=== PATIENT | female | born 2005 | race Asian ===

== ENCOUNTER 2024-04-20 10:24 | Outpatient (CLI) | payer BC, SELFPAY ==
--- NOTE | 2024-04-20 10:33 | US_ITS ---
FINAL REPORT CLINICAL HISTORY: POSTPRANDIAL PAIN / NAUSEA COMPARISON: None FINDINGS: Sonographic images of the right upper quadrant were obtained. The pancreas is unremarkable in appearance.The liver has an unremarkable appearance.The gallbladder appears normal without evidence of gallstones.There is no evidence of biliary ductal dilatation.The common duct measures 3 mm. Limited images of the right kidney are unremarkable. IMPRESSION: Unremarkable right upper quadrant ultrasound. Authenticated and ERN
[2024-04-20 11:21] LABS: Basophils # 0.1 K/mm3 (0-0.2); Basophils % 0.9 % (0.1-2.0); Eosinophils # 0.1 K/mm3 (0.0-0.4); Eosinophils % 1.2 % (0.1-12.0); Hematocrit 42.7 % (37.0-47.0); Hemoglobin 14.5 g/dL (12.2-16.2); Lymphocytes # 1.6 K/mm3 (0.7-4.5); Lymphocytes % 26.6 % (10-50); Mean Corpuscular HGB Conc 33.9 g/dL (31.8-35.4); Mean Corpuscular Hemoglobin 30.6 pg (27.0-31.2); Mean Corpuscular Volume 90.1 fl (81-99); Mean Platelet Volume 8.7 fl (7.4-10.4); Monocytes # 0.3 K/mm3 (0.1-1.0); Monocytes % 5.6 % (1.7-9.3); Neutrophils # 3.8 K/mm3 (1.8-7.8); Neutrophils % 65.7 % (37.0-80.0); Platelet Count 190 K/mm3 (142-424); Red Blood Count 4.74 M/mm3 (4.20-5.40); Red Cell Distribution Width 12.5 % (11.5-17.5); White Blood Count 5.8 K/mm3 (4.5-13.0)
[2024-04-20 11:40] LABS: Alanine Aminotransferase 20 U/L (12-78); Albumin Level 4.6 g/dl (3.5-5.0); Alkaline Phosphatase 40 U/L (38-126); Anion Gap 11.2 mEq/L (5-15); Aspartate Amino Transferase 23 U/L (14-36); Bilirubin,Total 0.7 mg/dl (0.2-1.3); Blood Urea Nitrogen 12 mg/dl (7-17); Calcium 9.3 mg/dl (8.4-10.2); Carbon Dioxide 27 mmol/L (22.0-30.0); Chloride 106 mmol/L (98-107); Estimated Glomerular Filt Rate 157 ml/min (>60); GFR (African American) 190 ML/MIN (>60); Globulin 2.3 g/dL (1.3-3.2); Glucose 81 mg/dl (74-100); Potassium 4.2 mmoL/L (3.5-5.1); Sodium 140 mmol/L (136-145); Total Protein,Serum 6.9 g/dl (6.3-8.2)
[2024-04-21 14:49] LABS: Endomysial IgA Antibody Negative (Negative)
[2024-04-21 16:23] LABS: Deamidated Gliadin Abs, IgA 3 units (0-19); Deamidated Gliadin Abs, IgG 3 units (0-19); Tissue Transglutaminase IgA Ab <2 U/mL (0-3); Tissue Transglutaminase IgG Ab 2 U/mL (0-5)
[2024-04-23 09:15] LABS: Reticulin IgA Antibody Negative titer (Neg:<1:2.5)
[2024-04-23 16:14] LABS: Saccharomyces cerevisiae, IgA <20.0 Units (0.0-24.9); Saccharomyces cerevisiae, IgG 32.5 Units (0.0-24.9)
== END 2024-04-20 23:59 | disposition home or self-care (01) ==
PROVIDERS: PCP Nurse Practitioner Family; Visit Provider Nurse Practitioner Family
DX: R11.2 Nausea with vomiting, unspecified (principal); K21.9 Gastro-esophageal reflux disease without esophagitis; R10.30 Lower abdominal pain, unspecified; R19.7 Diarrhea, unspecified
CPT/HCPCS: 36415; 76705; 80053; 83516; 85025; 86255; 86256; 86671

== ENCOUNTER 2024-06-17 08:01 | Day surgery (SDC) | payer BC, SELFPAY ==
--- NOTE | 2024-06-10 10:34 | SUR.PREOP ---
AZAEL W/ CALL BACK # ON 06/10 @ 1701
[2024-06-17 08:14] VITALS: BMI 20.5
[2024-06-17 08:24] VITALS: BP 164/94; PULSE 108; RESP 17; TEMP 37.4; O2SAT 100
[2024-06-17 08:35] LABS: Urine Pregnancy, HCG Qual. Negative (Negative)
--- NOTE | 2024-06-17 08:39 | EXP.HP ---
History of Present Illness *Admission Date: 06/17/24 *Reason for visit:: Lower abdominal cramps/pain-intermittent diarrhea *History of present illness: Ms. Jordan is a 18-year-old female who is here for diagnostic colonoscopy secondary to lower abdominal pain/cramps with intermittent diarrhea. Her IBD serologic panel did show a positive ASCA IgG antibody?positive Crohn's serology. The examination is deemed medically necessary for colonoscopy. The patient has been seen, interviewed and examined prior to the procedure by both myself and the anesthesia provider. [facility] Disclaimer: The information contained in this section may have been updated after the patient was seen, as this information can be updated by other users. Medical History (Updated 06/17/24 @ 08:47 by Roberto Johansen II, MD) Acid reflux Surgical History [place] teeth extracted Family History Other Adopted Social History Smoking Status: Never smoker alcohol intake: never substance use type: denies use current occupational status: student Travel in the last 8 weeks: Inside the [place] Review of Systems Review of Systems Review of systems (narrative): Negative *Cardiovascular Comments: Negative *Gastrointestinal Comments: Negative *Genitourinary Comments: Negative *Musculoskeletal Comments: Negative *Neurologic Comments: Negative Meds Home Medications and Allergies Home Medications ?Medication ?Instructions ?Recorded ?Confirmed ?Type famotidine 20 mg tablet 20 mg PO DAILY PRN reflux 04/12/24 06/17/24 History New Prescriptions to Start Prescriptions: Allergies Allergy/AdvReac Type Severity Reaction Status Date / Time No Known Allergies Allergy Verified 06/17/24 08:23 Exam Data for Last 24 hours Vital signs and Labs for Last 24 Hours: Temp Pulse Resp BP Pulse Ox O2 Del Method 99.3 F 108 H 17 164/94 H 100 Room Air 06/17/24 08:24 06/17/24 08:24 06/17/24 08:24 06/17/24 08:24 06/17/24 08:24 06/17/24 08:24 Laboratory Results - last 24 hr 06/17/24 08:15: Urine HCG, Qual Negative I & O for Last 24 hours: Intake & Output 06/14/24 06/15/24 06/16/24 06/17/24 23:59 23:59 23:59 23:59 Weight 98 lb *Routine HEENT Exam Head: Present normocephalic Eye: Present EOMI and PERRL ENT: Present mucous membranes moist *Routine Neck Exam Neck: Present supple *Routine Respiratory Exam Respiratory: Present CTA bilaterally *Routine Cardiovascular Exam Cardiovascular: Present RRR *Routine Abdominal Exam Abdominal: Present soft and normoactive bowel sounds; Absent tenderness *Routine Rectal Exam Rectal:: deferred *Routine Genitalia Exam Genitalia:: deferred *Routine Extremities Exam Extremities: Absent cyanosis, clubbing or edema *Routine Skin Exam Skin: Present warm; Absent rash *Routine Neurological Exam Neurological: Present alert and oriented X3 Assessment and Plan *Assessment and plan (1) Lower abdominal pain: Status: Acute Category: Medical Code(s): R10.30 - Lower abdominal pain, unspecified (2) Intermittent diarrhea: Status: Acute Category: Medical Code(s): R19.7 - Diarrhea, unspecified (3) Elevated Saccharomyces cerevisiae antibody level: Status: Acute Category: Medical Code(s): R76.8 - Other specified abnormal immunological findings in serum Plan A/P: 1. Lower abdominal pain with intermittent diarrhea and positive ASCA IgG antibody is the preprocedural diagnosis. The patient will be anesthetized/sedated using MAC sedation. The patient has been seen and examined. Cardiac and lung assessment prior to the examination is stable. Proceed with planned diagnostic colonoscopy
--- NOTE | 2024-06-17 08:39 | EXP.ANES.CKL ---
[facility] Disclaimer: The information contained in this section may have been updated after the patient was seen, as this information can be updated by other users. Medical History Acid reflux Surgical History [place] teeth extracted Family History Other Adopted Social History Smoking Status: Never smoker alcohol intake: never substance use type: denies use current occupational status: student Travel in the last 8 weeks: Inside the [place] [facility] Anesthesia Checklist Patient Identification Patient Identification: Arm Band Structural Data Admitted From: Home Planned Operative Procedure/s: Colonoscopy Consent for Planned Operative Procedure(s) Verified: Yes Verified Documents: Surgical Consent and History and Physical NPO Status Verified Time NPO: 00:00 Additional verifications Anesthesia Reactions: No Airway Assessment Mallampati Score:: Class II C-Spine Mobility Assessed: Yes TMJ Mobility Assessed: Yes Dentition: Good Dentition Neurological Assessment Level of Consciousness: Awake, Alert and Appropriate Anesthesia Plan Anesthesia Risk discussed: Yes Anesthesia Plan: Verified ASA Class: I Anesthesia Type: MAC
[2024-06-17 08:42] VITALS: O2SAT 100
--- NOTE | 2024-06-17 08:48 | P.PCN_ITS ---
[facility] Procedure Note Date: 06/17/24 Time: 09:02 Procedure Note:: Colonoscopy Procedure Report: Colonoscopy Endoscopist: Roberto Johansen II, MD Referring physician: Lyndsay JOSEPH Date of Procedure: June 17, 2024 Equipment: Olympus 190 variable stiffness pediatric colonoscope Sedation: MAC sedation Indication: Ms. Jordan is a 18-year-old female who is here for diagnostic colonoscopy. The patient has struggled with lower abdominal cramps and abdominal pain that is almost always in the evening and usually before bedtime at 8 PM. She gets nausea with this in the evenings and does have a history of some GERD. The patient does report having constipation while in elementary school. Now she will have intermittent diarrhea a couple of times a month. She will also get some vomiting a couple of times a month. 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 She does report a daily bowel movement but does have some obstipation/incomplete bowel evacuation. The patient did have lab work that showed normal CBC and chemistries. Her celiac serologies were normal. She did have a mildly elevated ASCA IgG antibody. The patient reports no rectal bleeding or mucus with her bowel movements. She reports no change in her bowel habits or weight loss. She does not know her family history. Procedure: Prior to the procedure, a history and physical exam was performed, and patient's medications and allergies were reviewed. The risks, benefits and alternatives of the sedation and procedure were discussed with the patient. All questions were answered and informed consent was obtained. The patient was brought to the procedure room. Patient identification and proposed procedure were verified by the physician and the nurse. The patient was placed in a left lateral decubitus position and the scope was passed under direct vision. Throughout the proced ure, the patient's blood pressure, pulse, and oxygen saturations were monitored continuously. The colonoscopy was accomplished without difficulty. The patient tolerated the procedure well. Findings: On digital rectal examination there was normal rectal tone. There were no external hemorrhoids. The colonoscope was introduced through the anal canal to the rectum and advanced to the cecum. The ileocecal valve and appendiceal orifice were identified. The scope was advanced a short distance into the ileum which appeared grossly normal. The scope was then withdrawn into the colon. The cecum, ascending, transverse, descending, sigmoid and rectum were grossly normal. There were no mucosal abnormalities identified. Upon retroflexion within the rectum there were very small grade 1 internal hemorrhoids.The preparation was excellent throughout. Impression: 1. Normal colonoscopy with intubation of the terminal ileum Plan: I do feel that she has functional abdominal pain and likely related to obstipation. We will discuss treatment options. There is a fairly high false positive rate of inflammatory bowel disease serologic markers (i.e ASCA IgG and IgA and pANCA) for Crohn's disease and u lcerative colitis. These autoantibody markers of IBD are frequently present in patients without Crohn's disease or ulcerative colitis, including patients with IBS and asymptomatic controls. A colonoscopy test is the most valid way to confirm or rule out IBD and her colonoscopy showed clearly no evidence of IBD or Crohn's disease.
[2024-06-17 09:03] VITALS: BP 97/47; PULSE 82; RESP 18; TEMP 36.6; O2SAT 95
[2024-06-17 09:13] VITALS: BP 105/55; PULSE 88; RESP 18; O2SAT 99
[2024-06-17 09:23] VITALS: BP 128/86; PULSE 81; RESP 18; O2SAT 100
[2024-06-17 09:33] VITALS: BP 136/84; PULSE 74; RESP 18; O2SAT 100
== END 2024-06-17 09:33 | disposition home or self-care (01) ==
PROVIDERS: PCP Nurse Practitioner Family; Visit Provider Internal Medicine Gastroenterology
PROC: (CPT 45378; principal; 2024-06-17 09:30)
DX: R10.30 Lower abdominal pain, unspecified (principal); R19.7 Diarrhea, unspecified; R76.8 Other specified abnormal immunological findings in serum; R10.9 Unspecified abdominal pain
CPT/HCPCS: 45378; 81025

== ENCOUNTER 2024-10-04 10:26 | Outpatient (CLI) | payer BC, SELFPAY | END 2024-10-04 23:59 | disposition home or self-care (01) | LOC: LAB.DROPOF 10-05 12:46 | PROVIDERS: PCP Nurse Practitioner Family; Visit Provider Nurse Practitioner Family | DX: J02.9 Acute pharyngitis, unspecified (principal) | CPT/HCPCS: 87070 ==